=== PATIENT | male | born 1995 | race Caucasian/White ===

== ENCOUNTER → 2023-12-13 13:04 | Outpatient (BNVA) | payer BC, SELFPAY | PROVIDERS: Family Provider Family Medicine; PCP Family Medicine; Visit Provider Registered Nurse Neonatal Intensive Care | DX: R50.9 Fever, unspecified (principal) | CPT/HCPCS: 87400 ==

== ENCOUNTER 2023-12-26 17:23 | Outpatient (CLI) | payer BC, SELFPAY ==
--- NOTE | 2023-12-26 17:41 | XRR_ITS ---
PROCEDURE INFORMATION: Exam: XR Chest Exam date and time: 12/26/2023 5:43 PM Age: 28 years old Clinical indication: Cough TECHNIQUE: Imaging protocol: Radiologic exam of the chest. Views: 2 views. COMPARISON: CR XR cervical spine 3V* [id number] 11/24/2018 1:04 PM FINDINGS: Lungs: There are increased bilateral perihilar and basilar opacities without evidence of substantial consolidation. Slight peribronchial thickening noted on the right. Pleural spaces: No pleural effusion identified. Heart/Mediastinum: Mild bilateral hilar enlargement. The mediastinum and heart do not appear enlarged. Bones/joints: No acute osseous abnormality identified. XR/XR chest 2V* [id number] IMPRESSION: 1. Bilateral predominantly perihilar and basilar opacities concerning for pneumonia including atypical agents. 2. Prominent richie bilaterally, which may reflect underlying adenopathy most likely chronic. Recommend follow-up chest x-ray in 1 month, sooner if warranted clinically, to confirm clearance and exclude other potential etiologies.
== END 2023-12-26 17:24 | disposition home or self-care (01) ==
LOC: RAD 17:34
PROVIDERS: PCP Family Medicine; Visit Provider Nurse Practitioner Family
DX: R05.9 Cough, unspecified (principal); R91.8 Other nonspecific abnormal finding of lung field
CPT/HCPCS: 71046

== ENCOUNTER 2024-02-16 17:09 | Outpatient (CLI) | payer BC, SELFPAY ==
--- NOTE | 2024-02-16 17:13 | XRR_ITS ---
PROCEDURE INFORMATION: Exam: XR Chest Exam date and time: 02/16/2024 5:21 PM Age: 28 years old Clinical indication: Condition or disease; Lung condition and disease; Other: Hilar adenopathy TECHNIQUE: Imaging protocol: Radiologic exam of the chest. Views: 2 views. COMPARISON: CR XR chest 2V* [id number] 12/26/2023 5:43 PM FINDINGS: Lungs: Diffuse prominence pulmonary interstitium. No lobar consolidation. Pleural spaces: Unremarkable. No pleural effusion. No pneumothorax. Heart/Mediastinum: Heart size normal. Prominence of the hilar contours likely related to lymphadenopathy. Bones/joints: Unremarkable. XR/XR chest 2V* [id number] IMPRESSION: Prominence of the hilar contours likely related to lymphadenopathy. Diffuse prominence of the pulmonary interstitium.
== END 2024-02-16 17:10 | disposition home or self-care (01) ==
LOC: RAD 17:10
PROVIDERS: PCP Family Medicine; Visit Provider Nurse Practitioner Family
DX: R59.0 Localized enlarged lymph nodes (principal)
CPT/HCPCS: 71046

== ENCOUNTER 2024-02-24 15:07 | Outpatient (CLI) | payer BC, SELFPAY ==
--- NOTE | 2024-02-24 15:09 | CTR_ITS ---
PROCEDURE INFORMATION: Exam: CT Chest With Contrast; Diagnostic Exam date and time: 02/24/2024 3:20 PM Age: 28 years old Clinical indication: Mass, lump, or swelling in the chest; Patient HX: Hilar adenopathy since 12/17 TECHNIQUE: Imaging protocol: Diagnostic computed tomography of the chest with contrast. Radiation optimization: All CT scans at this facility use at least one of these dose optimization techniques: automated exposure control; mA and/or kV adjustment per patient size (includes targeted exams where dose is matched to clinical indication); or iterative reconstruction. Contrast material: OMNI 350; Contrast volume: 95 ml; Contrast route: INTRAVENOUS (IV); COMPARISON: CR XR chest 2V* [id number] 02/16/2024 5:21 PM RADIATION DOSE METRICS: Total DLP (mGy-cm): 771.21 FINDINGS: Lungs: Numerous pulmonary nodules are noted throughout the lungs with the majority measuring about 2-3 mm in size. With the largest nodules is the 5 mm right upper lobe nodule series 3 image 27 and left subpleural ground-glass nodule measuring 4 mm series 3, image 35. Innumerable small pulmonary nodules most of which measure 2-3 mm in size but there is at least 1 nodule measuring 5 mm in size. There is mild peribronchial thickening. There is compressive atelectasis and probable pneumonitis right upper lobe and right middle lobe. Pleural spaces: No pleural effusion. Heart: Unremarkable. No cardiomegaly. No pericardial effusion. Lymph nodes: There is mediastinal adenopathy with 1 of the largest lymph nodes being a 1.8 x 2.1 cm subcarinal lymph node. Additional enlarged lymph nodes are noted in the azygoesophageal recess measuring 1.8 cm in short axis. There is a 1.6 cm short axis left hilar lymph node image 33. There is a there a conglomeration of enlarged right hilar lymph nodes or right hilar mass creating diffuse soft tissue density surrounding and narrowing the right mainstem bronchus best seen on series 3, image 26 measuring 1 cm in thickness with extension into the right hilum further narrowing the origin of all right bronchial branches without complete occlusion. Multiple subcentimeter axillary lymph nodes. No pathologic adenopathy in the visualized upper abdomen. Vasculature: Unremarkable. No aortic aneurysm. Spleen: The spleen is enlarged and extending out of the field of view measuring at least 16.6 x 7.4 x 15 cm. The spleen is diffusely heterogeneous in density with multiple hypodense nodules/heterogeneous enhancement. Bones/joints: Scattered sclerotic lesions are noted in the thoracic spine each measuring about 1 cm in size concerning for metastatic disease best seen involving T7, T11, L1 and L2. No pathologic fracture. Soft tissues: Unremarkable. CT/CT chest w con* [id number] IMPRESSION: 1. Mediastinal and right hilar adenopathy. There is extensive conglomerate soft tissue density in the right hilum that may reflect a right hilar mass versus conglomerate adenopathy. Innumerable pulmonary nodules measuring 2-3 mm in size. At least 1 nodule measures 5 mm. Consider lymphoma given the patient's age, abnormal spleen and bony lesions. Pulmonary findings in isolation could be found with sarcoidosis but splenic abnormalities would not be present. 2. Splenomegaly with multiple hypodense nodules/heterogeneous enhancement. 3. Multiple sclerotic lesions concerning for bony metastatic disease. 4. There is compressive atelectasis and probable pneumonitis right upper lobe and right middle lobe.
[2024-02-24] MEDS: iohexol 350 mg/mL 500 mL Btl (per mL) IV (15:24)
== END 2024-02-24 15:08 | disposition home or self-care (01) ==
LOC: RAD 15:08
PROVIDERS: PCP Nurse Practitioner Family; Visit Provider Nurse Practitioner Family
DX: R59.0 Localized enlarged lymph nodes (principal); R16.1 Splenomegaly, not elsewhere classified; D73.89 Other diseases of spleen; J98.11 Atelectasis
CPT/HCPCS: 71260; Q9967

== ENCOUNTER 2024-07-03 16:48 | Emergency (ER) | payer BC, SELFPAY ==
[2024-07-03 16:56] VITALS: BP 195/133; PULSE 91; RESP 18; O2SAT 98; BMI 42.1
--- NOTE | 2024-07-03 17:13 | ED_ITS ---
HPI - Abdominal Pain 2 General: Chief Complaint: Abdominal Pain Stated Complaint: Left abdominal pain Time Seen by Provider: 07/03/24 17:06 History of Present Illness: 29-year-old male presents emergency room with acute onset of left flank pain radiating down to the groin began 1 hour ago. Patient has severe pain and is very restless. He has been nauseous but no vomiting. He has not previously had pain like this. No history of kidney stones no hematuria. No dysuria urgency or frequency no recent trauma or falls Associated Symptoms: Denies chills, dysuria and fever(s) Related Data Previous Rx's Medication Instructions Recorded hydrocodone 5 mg-acetaminophen 325 1 tab PO Q6H PRN pain #20 tabs 07/03/24 mg tablet promethazine 25 mg tablet 25 mg PO Q6H PRN nausea and 07/03/24 vomiting #20 tabs tamsulosin 0.4 mg capsule 0.4 mg PO DAILY #20 caps 07/03/24 Allergies Allergy/AdvReac Type Severity Reaction Status Date / Time No Known Allergies Allergy Unverified 12/13/23 12:51 Review of Systems 2 Const: Denies: fever(s) or chills Card: Denies: chest pain Resp: Denies: dyspnea GI: Denies: abdominal pain : Reports: flank pain; Denies: dysuria, urinary frequency or urinary urgency Musc: Denies: neck pain or back pain Skin/Breast: Denies: rash Physical Exam 2 Const: GENERAL APPEARANCE: cooperative ORIENTATION/CONSCIOUSNESS: Yes awake, Yes oriented to person, Yes oriented to place and Yes oriented to time HENMT: COMMON NORMALS: normocephalic, atraumatic and hearing grossly normal bilaterally HEAD & SCALP: normocephalic and atraumatic Resp: COMMON NORMALS: normal respiratory effort, No retractions, No use of accessory muscles and clear to auscultation bilaterally AUSCULTATION: clear to auscultation bilaterally Cardio: COMMON NORMALS: regular rate, regular rhythm and No murmurs present (Cardio) RATE: regular rate RHYTHM: regular rhythm GI: COMMON NORMALS: Soft to palpation and No hepatosplenomegaly present A USCULTATION: Yes normoactive bowel sounds PALPATION: Yes Soft to palpation, No Tenderness to palpation present (GI), No Guarding due to palpation present (GI) and Yes No hepatosplenomegaly present Extremity: COMMON NORMALS: normal to inspection, capillary refill normal, no clubbing, cyanosis or edema, no calf tenderness and no pedal edema Neuro: SENSORIUM/ORIENTATION: Yes oriented to person, Yes oriented to place and Yes oriented to time Skin: COMMON NORMALS: no rashes or lesions noted GENERAL SKIN EXAM: no rashes or lesions noted Course 2 Vital Signs: Vital signs: Vital Signs Pulse Rate 80 07/03/24 19:54 Respiratory Rate 15 07/03/24 18:52 Blood Pressure 133/78 07/03/24 19:54 Pulse Oximetry 98 07/03/24 19:54 Oxygen Delivery Me thod Room Air 07/03/24 18:45 MDM - Abdominal Pain Medical Decision Making Severe left flank pain 3 mm stone at the UVJ. Pain controlled after Toradol and morphine will discharge home on hydrocodone start tamsulosin 1. No signs of infection his white count is slightly elevated I think that is more of a stress reaction urine did not show signs of acute cystitis. Strain urine follow-up with urology. If pain is not controlled return to the emergency room Medical Records I reviewed the patient's medical records. Lab Data I reviewed the patient's lab results. 07/03/24 17:10 07/03/24 17:10 Labs/Radiology: Radiology Impressions Abdomen/Pelvis CT 07/03/24 17:14 IMPRESSION: 1. Mild left-sided hydroureteronephrosis and perinephric/periureteral stranding, secondary to a 3 mm distal left ureteral calculus. 2. Additional findings, as above. Laboratory Results WBC 12.48 10^3/uL (3.29-11.43) H 07/03/24 17:10 RBC 5.43 10^6/uL (3.85-5.65) 07/03/24 17:10 Hgb 14.90 g/dL (11.27-16.99) 07/03/24 17:10 Hct 45.7 % (37-53) 07/03/24 17:10 MCV 84.2 fl (82-101) 07/03/24 17:10 MCH 27.4 pg (27-33) 07/03/24 17:10 MCHC 32.6 g/dL (30-55) 07/03/24 17:10 RDW 14.9 % (12.1-15.1) 07/03/24 17:10 Plt Count 372 10^3/cmm (157-399) 07/03/24 17:10 MPV 9.4 fL (7.4-10.4) 07/03/24 17:10 Neut % (Auto) 71.0 % 07/03/24 17:10 Lymph % (Auto) 17.9 % 07/03/24 17:10 [place] % (Auto) 9.8 % 07/03/24 17:10 Eos % (Auto) 0.3 % 07/03/24 17:10 Baso % (Auto) 0.4 % 07/03/24 17:10 Neut # (Auto) 8.85 10^3/uL (1.8-7.7) H 07/03/24 17:10 Lymph # (Auto) 2.2 10^3/uL (0.8-4.8) 07/03/24 17:10 [place] # (Auto) 1.2 10^3/uL (0.2-0.9) H 07/03/24 17:10 Eos # (Auto) 0.0 10^3/uL (0.0-0.8) 07/03/24 17:10 Baso # (Auto) 0.1 10^3/uL (0.0-0.1) 07/03/24 17:10 Nucleated RBC % (auto) 0 % 07/03/24 17:10 Nucleated RBCs # 0.0 /100WBC 07/03/24 17:10 Sodium 141 mmol/L (136-145) 07/03/24 17:10 Potassium 4.3 mmol/L (3.5-5.1) 07/03/24 17:10 Chloride 102 mmol/L (98-107) 07/03/24 17:10 Carbon Dioxide 30 mmol/L (22-29) H 07/03/24 17:10 Anion Gap 13.3 (5-19) 07/03/24 17:10 BUN 18 mg/dL (6-20) 07/03/24 17:10 Creatinine 1.0 mg/dL (0.7-1.2) 07/03/24 17:10 GFR Calculation 88.3 mL/min (90-130) L 07/03/24 17:10 Glucose 117 mg/dL (65-115) H 07/03/24 17:10 Calculated Osmolality 295 mOsm/kg (285-295) 07/03/24 17:10 Calcium 9.8 mg/dL (8.5-10.5) 07/03/24 17:10 Total Bilirubin 0.5 mg/dL (0.15-1.2) 07/03/24 17:10 AST 15 U/L (0-40) 07/03/24 17:10 ALT 33 U/L (0-41) 07/03/24 17:10 Alkaline Phosphatase 95 U/L (40-130) 07/03/24 17:10 Total Protein 8.4 g/dL (6.6-8.7) 07/03/24 17:10 Albumin 4.6 g/dL (3.5-5.2) 07/03/24 17:10 Globulin 3.8 g/dL (1.3-4.6) 07/03/24 17: Lipase 24 U/L (13-60) 07/03/24 17:10 Urine Color Yellow (Yellow) 07/03/24 17:48 Urine Appearance Cloudy (CLEAR) A 07/03/24 17:48 Urine pH 5.5 (5-7) 07/03/24 17:48 Ur Specific [place] 1.027 (1.005-1.030) 07/03/24 17:48 Urine Protein Negative (Negative) 07/03/24 17:48 Urine Glucose (UA) Negative (Normal) 07/03/24 17:48 Urine Ketones Negative (Negative) 07/03/24 17:48 Urine Blood 2+ (Negative) A 07/03/24 17:48 Urine Nitrate Negative (Negative) 07/03/24 17:48 Urine Bilirubin Negative (Negative) 07/03/24 17:48 Urine Urobilinogen 1.0 mg/dL (Negative) 07/03/24 17:48 Ur Leukocyte Esterase Negative (Negative) 07/03/24 17:48 Urine RBC 21-50 /hpf (0-2) H 07/03/24 17:48 Urine WBC 0-5 /hpf (0-5) 07/03/24 17:48 Ur Squamous Epith Cells 0-5 /hpf (0-5) 07/03/24 17:48 Amorphous Sediment Not Reportable 09/10/24 17:48 Urine Bacteria None seen /hpf (NONE) 07/03/24 17:48 Hyaline Casts 0.81 /lpf 07/03/24 17:48 All radiology interpretation(s) finalized by discharge Discharge Plan Discharge Patient Disposition: Home Clinical Impression: Nephrolithiasis Condition: Stable Prescriptions: New hydrocodone-acetaminophen 5-325 mg tablet 1 tab PO Q6H PRN (Reason: pain) Qty: 20 0RF promethazine 25 mg tablet 25 mg PO Q6H PRN (Reason: nausea and vomiting) Qty: 20 0RF tamsulosin 0.4 mg capsule 0.4 mg PO DAILY Qty: 20 0RF Discharge Orders: Discharge ED (Routine); Ordered 07/03/24 Ordered By: Adam Cali Referrals: Promise Charles [employer] [Primary Care Provider] - Patient Instructions: Kidney Stones (ED), How to Strain Your Urine (ED), Opioid Safety, Pain Management Activity Restrictions/Additional Instructions: Thank you for choosing [facility] for your healthcare needs today. It is very important that you follow up as instructed or that you return to the Emergency Department should you have concerns or if your condition changes or worsens in any way. You are seen today for left flank pain. You are found to have a 3 mm kidney stone. This likely will pass on its own. You should strain your urine. You were given pain medications to use as needed as well as nausea medicines finally tamsulosin alone a prostate medicine that increases the passage of kidney stones. Case management will make arrangements for you to follow-up with the urologist. Strain your urine to catch the kidney stone so it can be analyzed. Coding Level of Care Code ED [employer] for [employer]
--- NOTE | 2024-07-03 17:14 | CTR_ITS ---
PROCEDURE INFORMATION: Exam: CT Abdomen And Pelvis Without Contrast Exam date and time: 07/03/2024 5:19 PM Age: 29 years old Clinical indication: Abdominal pain; Flank; Left; Additional info: Flank pain TECHNIQUE: Imaging protocol: Computed tomography of the abdomen and pelvis without contrast. Axial, coronal and sagittal reformatted images were created and reviewed. Radiation optimization: All CT scans at this facility use at least one of these dose optimization techniques: automated exposure control; mA and/or kV adjustment per patient size (includes targeted exams where dose is matched to clinical indication); or iterative reconstruction. COMPARISON: CT chest w con* [id number] 02/24/2024 3:20 PM RADIATION DOSE METRICS: Total DLP (mGy-cm): 1260 FINDINGS: Liver: Mild hepatomegaly. Gallbladder and biliary ducts: No radiodense gallstones. No biliary ductal dilatation. Pancreas: Unremarkable. Spleen: Moderate splenomegaly. Adrenal glands: Normal. No mass. Kidneys and ureters: Mild left-sided hydroureteronephrosis and perinephric/periureteral stranding, secondary to a 3 mm distal left ureteral calculus (axial image 199 and coronal image 80). Stomach and bowel: No bowel wall thickening. No obstruction. No pneumatosis. Appendix: Normal. Intraperitoneal space: No free fluid. No organized fluid collection. No free air. Vasculature: Unremarkable. No aneurysm. Lymph nodes: Small mesenteric lymph nodes, nonspecific in appearance. No pathologically enlarged lymph nodes. Urinary bladder: Unremarkable as visualized. Reproductive: Unremarkable. Bones/joints: No acute osseous abnormality. Osteopenia. Mild degenerative changes. Soft tissues: Small, fat containing umbilical hernia. CT/CT kidney stone [id number] IMPRESSION: 1. Mild left-sided hydroureteronephrosis and perinephric/periureteral stranding, secondary to a 3 mm distal left ureteral calculus. 2. Additional findings, as above.
[2024-07-03 17:28] LABS: Basophils # 0.1 10^3/uL (0.0-0.1); Basophils % 0.4 %; Eosinophils % 0.3 %; Hematocrit 45.7 % (37-53); Lymphocytes # 2.2 10^3/uL (0.8-4.8); Lymphocytes % 17.9 %; Mean Corpuscular HGB Conc 32.6 g/dL (30-55); Mean Corpuscular Hemoglobin 27.4 pg (27-33); Mean Corpuscular Volume 84.2 fl (82-101); Mean Platelet Volume 9.4 fL (7.4-10.4); Monocytes # 1.2 10^3/uL (0.2-0.9); Monocytes % 9.8 %; Neutrophils # 8.85 10^3/uL (1.8-7.7); Nucleated Red Blood Cells % 0 %; Platelet Count 372 10^3/cmm (157-399); Red Blood Count 5.43 10^6/uL (3.85-5.65); Red Cell Distribution Width 14.9 % (12.1-15.1); White Blood Count 12.48 10^3/uL (3.29-11.43)
[2024-07-03 17:44] LABS: Alanine Aminotransferase 33 U/L (0-41); Albumin Level 4.6 g/dL (3.5-5.2); Alkaline Phosphatase 95 U/L (40-130); Anion Gap 13.3 (5-19); Aspartate Amino Transferase 15 U/L (0-40); Blood Urea Nitrogen 18 mg/dL (6-20); Calcium 9.8 mg/dL (8.5-10.5); Carbon Dioxide 30 mmol/L (22-29); Chloride 102 mmol/L (98-107); Creatinine Clr Calc Pharmacy 158.7713; Globulin 3.8 g/dL (1.3-4.6); Glomerular Filtration Rate 88.3 mL/min (90-130); Glucose 117 mg/dL (65-115); Lipase 24 U/L (13-60); Osmolality Calculated 295 mOsm/kg (285-295); Potassium 4.3 mmol/L (3.5-5.1); Sodium 141 mmol/L (136-145); Total Bilirubin 0.5 mg/dL (0.15-1.2); Total Protein 8.4 g/dL (6.6-8.7)
[2024-07-03] MEDS: ondansetron 2 mg/ML SDV 2 mL 4 MG IVP (17:46)
[2024-07-03] MEDS: morphine 4 mg/mL SDV 1 mL IVP ×2 (17:46→18:52)
[2024-07-03] MEDS: sodium chloride 0.9% 1,000 ML 999 ML IV (17:47)
[2024-07-03] MEDS: ketorolac 30 mg/mL INJ IVP (17:51)
[2024-07-03 17:54] LABS: Bilirubin Urine Negative (Negative); Blood Urine 2+ (Negative); Glucose Urine UA Negative (Normal); Ketones Urine Negative (Negative); Leukocyte Esterase Urine Negative (Negative); Nitrate Urine Negative (Negative); Protein Urine Negative (Negative); Specific Gravity, Urine 1.027 (1.005-1.030); Urine Appearance Cloudy (CLEAR); Urine Color Yellow (Yellow); pH Urine 5.5 (5-7)
[2024-07-03 18:00] LABS: Add Urine Microscopic? YES; Bacteria Urine None Seen /hpf; Hyaline Casts Urine 0.81 /lpf; RBC Urine 21-50 /hpf (0-2); Squamous Epithelial Cell Urine 0-5 /hpf (0-5); WBC Urine 0-5 /hpf (0-5)
[2024-07-03 18:11] LABS: Add Urine Culture? Yes
[2024-07-03 18:45] VITALS: PULSE 87; O2SAT 99
[2024-07-03 18:52] VITALS: RESP 15
[2024-07-03 19:54] VITALS: BP 133/78; PULSE 80; O2SAT 98
--- NOTE | 2024-07-05 08:22 | DCPLANNER ---
faxed packet for urology f/u to rebecca
== END 2024-07-03 19:20 | disposition home or self-care (01) ==
PROVIDERS: Emergency Medicine; Emergency Provider Family Medicine; PCP Nurse Practitioner Family
DX: N13.2 Hydronephrosis with renal and ureteral calculous obstruction (principal)
CPT/HCPCS: 36415; 74176; 80053; 81001; 83690; 85025; 87086; 96374; 96375; 96376; 99285; J1885; J2270; J2405; J7030

== ENCOUNTER → 2025-01-14 17:40 | Outpatient (BNVA) | payer BC, SELFPAY | PROVIDERS: PCP Nurse Practitioner Family; Visit Provider Family Medicine | DX: M25.562 Pain in left knee (principal) | CPT/HCPCS: 73562 ==

== ENCOUNTER 2025-06-26 12:36 | Outpatient (CLI) | payer BC, SELFPAY ==
--- NOTE | 2025-06-26 12:40 | XR_ITS ---
WS: [id number] Chest 2 views, 06/26/2025 Clinical Data: ENLARGED LYMPH NODES/SARCOIDOSIS OF LUNG Comparison: Two-view chest, 02/16/2024 Findings: Bilateral hilar enlargement with central pulmonary opacities shows mild improvement. No nodules, masses or effusions are seen. The heart is normal. The pulmonary vascularity is not increased. No pneumonia or pneumothorax is seen. XR/XR chest 2V* [id number] Impression: Chronic hilar enlargement in central pulmonary opacities consistent with sarcoi dosis.
== END 2025-06-26 12:37 | disposition home or self-care (01) ==
LOC: RAD 12:37
PROVIDERS: PCP Nurse Practitioner Family; Visit Provider Internal Medicine
DX: R59.0 Localized enlarged lymph nodes (principal); D86.0 Sarcoidosis of lung
CPT/HCPCS: 71046